=== PATIENT | female | born 1970 | race Caucasian/White ===

== ENCOUNTER 2016-08-07 16:01 | Emergency (ER) | payer SELFPAY ==
[2016-08-07 16:12] VITALS: TEMP 98.6; BMI 25.0
[2016-08-07] MEDS ORDERED: Lidocaine 2%-Epinephrine 1:100,000 20ml vial INF ONE (17:55)
[2016-08-07] MEDS ORDERED: OXYCODONE HCL 5 MG TABLET PO ONE (17:55)
--- NOTE | 2016-08-07 18:21 | EDPRACDOC ---
- General Information Chief Complaint: Wound Stated Complaint: RT SIDED ABD PAIN FEVER Time Seen by Provider: 08/07/16 17:43 Information Source: Patient Mode of Arrival:: Car Home Medications: Home Medications Albuterol Sulfate [Proventil Hfa] 2 puff INH Q6 PRN 12/22/15 Prednisone [Deltasone, Orasone] 20 mg PO DAILY #12 tab 12/23/15 Sulfamethoxazole/Trimethoprim [Bactrim Ds Tablet] 2 tabs PO BID #40 tab Oxycodone Immediate Release [Oxycodone Immediate Release (OxyIR)] 5 - 10 mg PO Q6H PRN #15 tab 08/07/16 Sulfamethoxazole/Trimethoprim [Bactrim Ds Tablet] 2 tabs PO BID #40 tab Allergies/Adverse Reactions: Allergies Allergy/AdvReac Type Severity Reaction Status Date / Time No Known Allergies Allergy Verified 12/22/15 23:59 - History of Present Illness Onset: 4 days HPI: PT C/O RIGHT LOWER ABDOMINAL WALL ABSCESS X 2 FR 4 DAYS. REDNESS AND WARMTH TO SKIN AROUND ABSCESS. 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 negative: Fever, Chills, Weakness, Fatigue, Loss of Appetite Eyes: No Symptoms Reported. negative: Redness, Blurred Vision, Double Vision, Discharge, Pain, Light Sensitive, Photophobia Ears: No Symptoms Reported. negative: Pain, Hearing Loss, Drainage, Ear Pulling Throat: No Symptoms Reported. negative: Pain, Swelling Nose: No Symptoms Reported. negative: Congestion, Bleeding, Discharge, Injection, Swelling, Deformity, Ecchymosis, Tender, Abrasion, Laceration Mouth: No Symptoms Reported. negative: Pain, Drooling Respiratory: No Symptoms Reported. negative: Cough, Brassy Cough, Barky Cough, Shortness of Breath, Wheezing, Hemoptysis Cardiovascular: No Symptoms Reported. negative: Chest Pain, Palpitations, Syncope, Edema, Orthopnea, PND, Skin Mottling, Cyanosis Gastrointestinal: No Symptoms Reported. negative: Pain, Constipation, Nausea, Vomiting, Diarrhea, Melena, Formula Intolerance Genitourinary: No Symptoms Reported. negative: Dysuria, Hematuria, Frequency, Discharge, Bleeding, Testicular Pain, Neurological: No Symptoms Reported. negative: Headache, Dizziness, Seizure, Numbness, Weakness, Speech Difficulty, Gait Difficulty Musculoskeletal: No Symptoms Reported. negative: Neck, Chestwall, Ribs, Back, Shoulder, Arm, Elbow, Forearm, Wrist, Hand, Pelvis, Hip, Femur, Knee, Leg, Ankle , Foot Integumentary: Other (RIGHT LOWER ABDOMINAL WALL ABSCESS). negative: Bruising, Itching, Rash, Wound Allergic/Immunologic: No Symptoms Reported. negative: Hives, Itching Hematologic: No Symptoms Reported. negative: Lymphadenopathy, Easy Bruising, Easy Bleeding Endocrine: No Symptoms Reported. negative: Weight Gain, Weight Loss Psychiatric: No Symptoms Reported. negative: Anxiety, Depression, Hallucinations, Insomnia, Suicidal - Physical Exam Constitutional: No apparent distress, Alert (Awake) Oriented to: Time, Person, Place Last recorded Vital Signs: Last Vital Signs Temp 98.6 F 08/07/16 16:08 Pulse 107 08/07/16 16:08 Resp 16 08/07/16 16:08 BP 134/83 08/07/16 16:08 Pulse Ox 100 08/07/16 16:08 Oxygen Pulse Oxygen Saturation 100 O2 Device Oxygen Flow Rate Fraction of Inspired Oxygen ( FIO2) - HEENT Head: Normal ( normocephalic) Eye Exam: Normal (PERRL, EOMI, Sclera white) Oropharynx: Normal (Pharynx:Moist without exudate,Gums-no swelling) Tympanic Membrane: Normal ENT EAC: Normal TMJ: Normal Nose: No Symptoms Reported (septum midline) Neck: Normal (FROM, trachea at midline) - Respiratory/Cardiovascular Respiratory: Normal - CTA (BBS clear to auscultation without adventitious sounds ) Cardiovascular: Normal (RRR without murmur, gallop or rub) - GI Auscultation: Normal (NABS) Palpation: Other (RLQ ABDOMINAL WALL) Tenderness: Non tender Rachel's Sign: Negative - Bladder: Normal - Musculoskeletal Back: Normal (Non-Tender) Extremities: Normal (Normal tone, Pulses 2+ No cyanosis or edema, FROM) - Integumentary Skin: Normal, Warm, Dry, Other (RLQ ABDOMINAL WALL ABSCESS X 2 WITH SURROUNDING CELLULITIS) Lymphatics: Normal (no adenopathy) - Neurologic Memory Impaired: Normal Motor Function: Normal (Normal tone, Pulses 2+ No cyanosis or edema, FROM) Cranial Nerve: Normal (CN II-X11 intact sensation, strength 5/5) Cerebellar: Normal Mood Description: Normal Thought: Coherent Perception: Normal ED Abscess/Mass Exam - Integumentary Skin: Normal Mass: Red, Tender, Firm, Local Cellulitis Lymphatics: Normal ED Procedures - Incision and Drainage Informed of risks, benefits and alternatives described.: Yes Informed Consent Signed: Verbal Indication: Painful Mass (X 2 4CM APART) Anesthetic: Lidocaine, with Epi Prep: Betadine Blade Size: 11 Incised Site drained: Reports: Blood, Pus Incised site was: Not irrigated, Not Packed with Iodoform - Differential Diagnosis Abscess, Cellulitis Decision Time to Discharge: 18:46 - Departure Disposition: Home Condition: Stable Final Diagnosis: Abscess Instructions: MRSA (Methicillin Resistant Staphylococcus Aureus) (ED) Education/Counseling Given To: Patient Education/Counseling Given Regarding: Diagnosis, Treatment, Prognosis, Follow Up Referrals: None,No Provider [Primary Care Provider] - One Week Prescriptions: Oxycodone Immediate Release [Oxycodone Immediate Release (OxyIR)] 5 - 10 mg PO Q6H PRN #15 tab PRN Reason: Pain Sulfamethoxazole/Trimethoprim [Bactrim Ds Tablet] 2 tabs PO BID #40 tab Additional Instructions: RETURN IN 2 DAYS FOR WOUND CHECK OR SOONER IF WORSE OR DIFFERENT SYMPTOMS.
[2016-08-07 19:16] VITALS: BP 128/76; PULSE 94
== END 2016-08-07 19:11 | disposition home or self-care (01) ==
LOC: EDMC 16:01
DX: L02.211 Cutaneous abscess of abdominal wall (principal)
CPT/HCPCS: 10060; 87070; 87075; 87077; 87186; 99283; J3490